=== PATIENT | female | born 1995 | race African-American/Black ===

== ENCOUNTER 2020-01-06 12:16 | Emergency (ER) | payer MEDICAID ==
[~2020-01-06] VITALS: Ht 162.6 cm; Wt 73.0 kg
[2020-01-06] MEDS ORDERED: KETOROLAC 60MG/2ML VIAL IM ONE (12:45)
[2020-01-06 13:15] VITALS: BP 113/73
== END 2020-01-06 13:19 | disposition left against medical advice (07) ==
LOC: ER 12:16
DX: M79.606 Pain in leg, unspecified (principal)
CPT/HCPCS: 99283